=== PATIENT | female | born 1970 | race African-American/Black ===

== ENCOUNTER 2023-07-14 07:38 | Inpatient (IN) | payer MEDICARE, MEDICAID ==
[~2023-07-14] VITALS: Ht 175.3 cm; Wt 96.6 kg
[~2023-07-14 07:38] MED LIST: NIFE10CA; [UNRECOGNIZED DRUG - OTHER]
[2023-07-14 09:05] LABS: BASOPHILS % 0.6 % (0.0-2.0); EOSINOPHILS % 1.9 % (0.0-5.0); HEMATOCRIT. 40.8 % (36.0-48.0); HEMOGLOBIN. 13.5 g/dL (12.0-16.0); LYMPHOCYTES % 20.3 % (20.0-50.0); MEAN CORPUSCULAR HEMOGLOBIN 31.1 pg (28.0-32.0); MEAN CORPUSCULAR HGB CONC 33.1 g/dL (31.0-37.0); MEAN CORPUSCULAR VOLUME 93.9 fL (81.0-99.0); MEAN PLATELET VOLUME 7.5 fl (7.4-10.4); MONOCYTES % 7.1 % (2.0-8.0); NEUTROPHILS % 70.1 % (40.0-76.0); PLATELET 274 x1000/uL (130-400); RED BLOOD CELL COUNT 4.35 mill/uL (4.2-5.4); WHITE BLOOD COUNT 6.8 x1000/uL (4.5-11.0)
[2023-07-14 09:12] LABS: CHLORIDE 110 mEq/L (98-107); INDEX HEMOLYSI 2 (1-3); INDEX ICTERIC 1 (1-4); INDEX LIPEMIC 1 (1-3); POTASSIUM 3.6 mEq/L (3.5-5.1); SODIUM 137 mEq/L (136-145)
[2023-07-14] MEDS ORDERED: MORPHINE SULFATE 4 MG/ML CPJ (NOT FOR IM USE) IV ONE (09:15)
[2023-07-14 09:21] LABS: ALANINE AMINOTRANSFERASE 28 IU/L (13-61); ALBUMIN 3.6 g/dL (3.4-5.0); ASPARTATE AMINOTRANSFERASE 23 IU/L (15-37); BILIRUBIN TOTAL 0.3 mg/dL (0.1-1.0); CALCIUM 8.7 mg/dL (8.5-10.1); CARBON DIOXIDE 24 mEq/L (21-32); CREATININE 0.7 mg/dL (0.6-1.3); GLUCOSE 106 mg/dL (70-105); PROTEIN TOTAL 7.4 g/dL (6.0-8.3); TROPONIN I HIGH SENSITIVITY 5 ng/L (<54); UREA NITROGEN BLOOD 11 mg/dL (7-21)
[2023-07-14 09:23] LABS: NT PRO B-TYPE NATRIURETIC PEP < 5 pg/mL (5-125)
[2023-07-14] MEDS ORDERED: ONDANSETRON HCL 4MG/2ML INJ IV PRN (12:00)
[2023-07-14] MEDS ORDERED: GUAIFENESIN 200MG/10ML SUGAR FREE UDC PO PRN (12:00)
[2023-07-14] MEDS ORDERED: DOCUSATE SODIUM 100MG CAPSULE PO PRN (12:00)
[2023-07-14] MEDS ORDERED: IPRATROPIUM/ALBUTEROL 0.5-3(2.5)MG/3ML NEB HHN PRN (12:00)
[2023-07-14] MEDS ORDERED: ACETAMINOPHEN 325MG TABLET PO PRN (12:00)
[2023-07-14] MEDS ORDERED: CLONIDINE 0.1MG TABLET PO PRN (12:00)
[2023-07-14] MEDS ORDERED: NALOXONE HCL 0.4MG/ML VIAL IV PRN (12:15)
[2023-07-14] MEDS: PANTOPRAZOLE SODIUM 40 MG/VIAL IV SCH (12:55)
[2023-07-14] MEDS: CLOPIDOGREL 75MG TABLET PO SCH (12:56)
[2023-07-14] MEDS: ENOXAPARIN 40MG/0.4ML SYR SUBCUT SCH ×2 (13:00→21:43)
[2023-07-14 16:10] LABS: TROPONIN I HIGH SENSITIVITY 7 ng/L (<54)
[2023-07-14 16:15] VITALS: BP 142/59; PULSE 73; RESP 15; TEMP 97.3
[2023-07-14 16:20] VITALS: BP 142/94; PULSE 83; RESP 15; TEMP 97.3
[2023-07-14 18:00] VITALS: BP 140/85; PULSE 73; RESP 15; TEMP 97.3
[2023-07-14] MEDS: TRAMADOL 50MG TABLET PO PRN (18:06)
[2023-07-14 20:00] VITALS: BP 140/89; PULSE 74; RESP 18; TEMP 97.1
[2023-07-14] MEDS: MORPHINE SULFATE 2 MG/ML CPJ (NOT FOR IM USE) IV PRN (23:18)
[2023-07-15] VITALS: BP 128/99; PULSE 62; RESP 17; TEMP 97.4
[2023-07-15] LABS: TROPONIN I HIGH SENSITIVITY 6 ng/L (<54)
[2023-07-15] MEDS: NITROGLYCERIN 0.4MG TABLET SL SL PRN ×2 (01:20→10:07)
[2023-07-15 04:00] VITALS: BP 140/87; PULSE 61; RESP 17; TEMP 98.2
[2023-07-15 07:20] LABS: BASOPHILS % 0.4 % (0.0-2.0); EOSINOPHILS % 2.9 % (0.0-5.0); HEMOGLOBIN. 14.3 g/dL (12.0-16.0); LYMPHOCYTES % 32.8 % (20.0-50.0); MEAN CORPUSCULAR VOLUME 91.6 fL (81.0-99.0); MEAN PLATELET VOLUME 7.6 fl (7.4-10.4); MONOCYTES % 10.5 % (2.0-8.0); NEUTROPHILS % 53.4 % (40.0-76.0); PLATELET 258 x1000/uL (130-400); RED BLOOD CELL COUNT 4.48 mill/uL (4.2-5.4); RED CELL DISTRIBUTION WIDTH 14.5 % (11.6-14.6); WHITE BLOOD COUNT 6.4 x1000/uL (4.5-11.0)
[2023-07-15] MEDS: PANTOPRAZOLE SODIUM 40 MG/VIAL IV SCH (07:58)
[2023-07-15] MEDS: TRAMADOL 50MG TABLET PO PRN (07:59)
[2023-07-15 08:43] VITALS: BP 115/66; PULSE 65; RESP 14; TEMP 98.2
[2023-07-15 08:54] LABS: CHLORIDE 109 mEq/L (98-107); INDEX HEMOLYSI 2 (1-3); INDEX ICTERIC 1 (1-4); INDEX LIPEMIC 1 (1-3); POTASSIUM 3.6 mEq/L (3.5-5.1); SODIUM 136 mEq/L (136-145)
[2023-07-15 09:03] LABS: ALANINE AMINOTRANSFERASE 30 IU/L (13-61); ALBUMIN 3.8 g/dL (3.4-5.0); ASPARTATE AMINOTRANSFERASE 25 IU/L (15-37); BILIRUBIN TOTAL 0.6 mg/dL (0.1-1.0); CALCIUM 9.2 mg/dL (8.5-10.1); CARBON DIOXIDE 25 mEq/L (21-32); CREATININE 0.7 mg/dL (0.6-1.3); GLUCOSE 97 mg/dL (70-105); PROTEIN TOTAL 7.6 g/dL (6.0-8.3); UREA NITROGEN BLOOD 11 mg/dL (7-21)
[2023-07-15] MEDS: ASPIRIN 81MG EC TABLET PO SCH (09:11)
[2023-07-15] MEDS: CLOPIDOGREL 75MG TABLET PO SCH (09:11)
[2023-07-15] MEDS ORDERED: ENOXAPARIN 100MG/ML SYR SUBCUT NR (10:00)
[2023-07-15] MEDS: MORPHINE SULFATE 2 MG/ML CPJ (NOT FOR IM USE) IV PRN (10:06)
[2023-07-15] MEDS ORDERED: CARV6.2548 PO (10:12)
[2023-07-15 10:55] LABS: TROPONIN I HIGH SENSITIVITY 4 ng/L (<54)
[2023-07-15 11:15] LABS: PROTHROMBIN TIME 10.6 sec (9.6-11.0)
[2023-07-15 12:00] VITALS: BP 130/92; PULSE 73; RESP 18; TEMP 97.8
[2023-07-15] MEDS: AMLODIPINE 10MG TABLET PO SCH (12:09)
[2023-07-15] MEDS: CARVEDILOL 6.25 MG TABLET PO SCH ×2 (12:09→21:19)
[2023-07-15] MEDS: ISOSORBIDE MONONITRATE 30MG TABLET SR 24HR PO SCH (12:10)
[2023-07-15 12:58] LABS: TROPONIN I HIGH SENSITIVITY 5 ng/L (<54)
[2023-07-15] MEDS ORDERED: IOHEXOL-350 100 ML BOTTLE ONE (12:58)
[2023-07-15 16:45] VITALS: BP 117/77; PULSE 68; RESP 14; TEMP 97.5
[2023-07-15 20:25] VITALS: BP 125/87; PULSE 62; RESP 18; TEMP 97.9
[2023-07-15] MEDS: ENOXAPARIN 100MG/ML SYR SUBCUT SCH (21:19)
[2023-07-16] VITALS: BP 117/77; PULSE 58; RESP 17; TEMP 97.8
[2023-07-16 04:00] VITALS: BP 117/79; PULSE 57; RESP 17; TEMP 97.8
[2023-07-16 08:02] VITALS: BP 120/93; PULSE 67; RESP 13; TEMP 98
[2023-07-16] MEDS: ISOSORBIDE MONONITRATE 30MG TABLET SR 24HR PO SCH (08:33)
[2023-07-16] MEDS: ENOXAPARIN 100MG/ML SYR SUBCUT SCH ×2 (08:33→20:40)
[2023-07-16] MEDS: CARVEDILOL 6.25 MG TABLET PO SCH ×2 (08:33→20:39)
[2023-07-16] MEDS: AMLODIPINE 10MG TABLET PO SCH (08:33)
[2023-07-16] MEDS: ASPIRIN 81MG EC TABLET PO SCH (08:33)
[2023-07-16] MEDS: CLOPIDOGREL 75MG TABLET PO SCH (08:33)
[2023-07-16] MEDS: PANTOPRAZOLE SODIUM 40 MG/VIAL IV SCH (08:34)
[2023-07-16] MEDS ORDERED: ISOSORBIDE MONONITRATE 30MG TABLET SR 24HR PO SCH (09:00)
[2023-07-16] MEDS ORDERED: ISOSORBIDE MONONITRATE 30MG TABLET SR 24HR PO NR (10:00)
[2023-07-16 12:00] VITALS: BP 133/93; PULSE 62; RESP 21; TEMP 98.3
[2023-07-16 16:01] VITALS: BP 116/80; PULSE 69; RESP 15; TEMP 98.8
[2023-07-16 19:47] VITALS: BP 128/93; PULSE 88; RESP 20; TEMP 97.9
[2023-07-17] VITALS (7 sets, daily range): BP systolic 98–122; BP diastolic 62–76; PULSE 60–78; RESP 12–27; TEMP 97–98.6
[2023-07-17] MEDS: ASPIRIN 81MG EC TABLET PO SCH (08:34)
[2023-07-17] MEDS: CARVEDILOL 6.25 MG TABLET PO SCH ×2 (08:35→21:27)
[2023-07-17] MEDS: ENOXAPARIN 100MG/ML SYR SUBCUT SCH ×2 (08:35→22:41)
[2023-07-17] MEDS: CLOPIDOGREL 75MG TABLET PO SCH (08:35)
[2023-07-17] MEDS: AMLODIPINE 10MG TABLET PO SCH (08:35)
[2023-07-17] MEDS: PANTOPRAZOLE SODIUM 40 MG/VIAL IV SCH (08:36)
[2023-07-17] MEDS: ISOSORBIDE MONONITRATE 60MG TABLET SR 24HR PO SCH (08:45)
[2023-07-17] MEDS: NITROGLYCERIN 0.4MG TABLET SL SL PRN ×2 (14:58→18:57)
[2023-07-17] MEDS: TRAMADOL 50MG TABLET PO PRN (21:28)
[2023-07-18] VITALS (11 sets, daily range): BP systolic 110–144; BP diastolic 54–91; PULSE 59–77; RESP 12–22; TEMP 96.6–98.3
[2023-07-18] MEDS: SODIUM CHLORIDE 0.45% 500 ML IV SCH ×3 (00:48→15:45)
[2023-07-18] MEDS: ENOXAPARIN 100MG/ML SYR SUBCUT SCH (08:04)
[2023-07-18] MEDS: CARVEDILOL 6.25 MG TABLET PO SCH ×2 (08:22→21:14)
[2023-07-18] MEDS: AMLODIPINE 10MG TABLET PO SCH (08:23)
[2023-07-18] MEDS: PANTOPRAZOLE SODIUM 40 MG/VIAL IV SCH (08:23)
[2023-07-18] MEDS: ISOSORBIDE MONONITRATE 60MG TABLET SR 24HR PO SCH (08:23)
[2023-07-18] MEDS: CLOPIDOGREL 75MG TABLET PO SCH (08:23)
[2023-07-18] MEDS: ASPIRIN 81MG EC TABLET PO SCH (08:23)
[2023-07-18] MEDS ORDERED: LIDOCAINE HCL 1% 10 MG/ML 10ML VIAL ONE (09:51)
[2023-07-18] MEDS ORDERED: VERAPAMIL HCL 2.5 MG/1 ML 2ML VIAL IV ONE (09:52)
[2023-07-18] MEDS ORDERED: IODIXANOL 320MG/ML 100 ML BOTTLE IV ONE (09:56)
[2023-07-18] MEDS ORDERED: MIDAZOLAM HCL 2 MG/2 ML VIAL ONE (10:19)
[2023-07-18] MEDS ORDERED: FENTANYL CITRATE/PF 50MCG/ML 2ML VIAL ONE (10:20)
[2023-07-18] MEDS ORDERED: HEPARIN 1000 UNITS/ML 10ML ONE (10:34)
[2023-07-18] MEDS ORDERED: DIPHENHYDRAMINE 50MG/ML VIAL ONE (10:45)
[2023-07-18] MEDS ORDERED: DOPAMINE 400MG/250ML PREMIX 250 ML IV ONE (10:55)
[2023-07-18] MEDS ORDERED: CLOPIDOGREL 75MG TABLET ONE (11:12)
[2023-07-18] MEDS ORDERED: ACETAMINOPHEN 325MG TABLET PO PRN (11:45)
[2023-07-18] MEDS ORDERED: ATROPINE SULFATE 1MG/10ML SYR IV PRN (11:45)
[2023-07-18] MEDS: APIXABAN 5 MG TABLET PO SCH (18:02)
[2023-07-18] MEDS: TRAMADOL 50MG TABLET PO PRN (21:14)
[2023-07-19 00:07] VITALS: BP 112/68; PULSE 71; RESP 18; TEMP 98.4
[2023-07-19] MEDS: MORPHINE SULFATE 2 MG/ML CPJ (NOT FOR IM USE) IV PRN (00:52)
[2023-07-19 04:03] VITALS: BP 139/90; PULSE 64; RESP 14; TEMP 98.1
[2023-07-19 06:21] LABS: BASOPHILS % 0.6 % (0.0-2.0); EOSINOPHILS % 4.2 % (0.0-5.0); HEMATOCRIT. 42.5 % (36.0-48.0); HEMOGLOBIN. 14.6 g/dL (12.0-16.0); LYMPHOCYTES % 30.5 % (20.0-50.0); MEAN CORPUSCULAR HEMOGLOBIN 31.7 pg (28.0-32.0); MEAN CORPUSCULAR HGB CONC 34.5 g/dL (31.0-37.0); MEAN CORPUSCULAR VOLUME 92.1 fL (81.0-99.0); MEAN PLATELET VOLUME 7.7 fl (7.4-10.4); NEUTROPHILS % 52.7 % (40.0-76.0); PLATELET 263 x1000/uL (130-400); RED BLOOD CELL COUNT 4.61 mill/uL (4.2-5.4); WHITE BLOOD COUNT 5.6 x1000/uL (4.5-11.0)
[2023-07-19 07:21] LABS: CALCIUM 9.2 mg/dL (8.5-10.1); CHLORIDE 111 mEq/L (98-107); INDEX HEMOLYSI 1 (1-3); INDEX ICTERIC 1 (1-4); INDEX LIPEMIC 1 (1-3); POTASSIUM 3.8 mEq/L (3.5-5.1); SODIUM 136 mEq/L (136-145)
[2023-07-19 07:25] LABS: CARBON DIOXIDE 29 mEq/L (21-32); CREATININE 0.7 mg/dL (0.6-1.3); GLUCOSE 98 mg/dL (70-105); UREA NITROGEN BLOOD 12 mg/dL (7-21)
[2023-07-19 08:02] VITALS: BP 133/93; PULSE 81; RESP 22; TEMP 97.8
[2023-07-19] MEDS ORDERED: CLOPIDOGREL 75MG TABLET PO SCH (09:00)
[2023-07-19] MEDS: CARVEDILOL 6.25 MG TABLET PO SCH (09:10)
[2023-07-19] MEDS: APIXABAN 5 MG TABLET PO SCH (09:10)
[2023-07-19] MEDS: AMLODIPINE 10MG TABLET PO SCH (09:10)
[2023-07-19] MEDS: PANTOPRAZOLE SODIUM 40 MG/VIAL IV SCH (09:11)
[2023-07-19] MEDS: ASPIRIN 81MG EC TABLET PO SCH (09:11)
[2023-07-19 12:00] VITALS: BP 129/84; PULSE 72; RESP 14; TEMP 97.7
[2023-07-19 15:05] VITALS: BP 134/93; PULSE 99; TEMP 98.1; O2SAT 99
[2023-07-25] MEDS ORDERED: APIXABAN 5 MG TABLET PO SCH (17:00)
== END 2023-07-19 16:39 | disposition home or self-care (01) | DRG 246 ==
LOC: ER 08:19 → 3WST 11:13 → EDBEDREQTM 11:14 → EDBEDREQ 11:14
PROVIDERS: ADMIT Hospitalist; ATTEND Hospitalist
PROC: 027034Z Dilation of Coronary Artery, One Artery with Drug-eluting Intraluminal Device, Percutaneous Approach (ICD-10-PCS; principal; 2023-07-18)
PROC: 4A023N7 Measurement of Cardiac Sampling and Pressure, Left Heart, Percutaneous Approach (ICD-10-PCS; 2023-07-18)
PROC: B211YZZ Fluoroscopy of Multiple Coronary Arteries using Other Contrast (ICD-10-PCS; 2023-07-18)
DX: T82.855A Stenosis of coronary artery stent, initial encounter (principal); I21.9 Acute myocardial infarction, unspecified; I82.411 Acute embolism and thrombosis of right femoral vein; I25.110 Atherosclerotic heart disease of native coronary artery with unstable angina pectoris; I10 Essential (primary) hypertension; J44.9 Chronic obstructive pulmonary disease, unspecified; F41.9 Anxiety disorder, unspecified; K21.9 Gastro-esophageal reflux disease without esophagitis; E78.5 Hyperlipidemia, unspecified; F17.200 Nicotine dependence, unspecified, uncomplicated; I25.2 Old myocardial infarction; Z95.5 Presence of coronary angioplasty implant and graft; Z79.899 Other long term (current) drug therapy; Y84.8 Other medical procedures as the cause of abnormal reaction of the patient, or of later complication, without mention of misadventure at the time of the procedure; Y92.89 Other specified places as the place of occurrence of the external cause
CPT/HCPCS: 36415; 71045; 71275; 80048; 80053; 80061; 83880; 84484; 85025; 93005; 93306; 93880; 93970; 99285; C9113; J1200; J1265; J1644; J1650; J2250; J2270; J3010; J3490; Q9967

== ENCOUNTER 2023-09-15 08:28 | Inpatient (IN) | payer MEDICARE, MEDICAID ==
[~2023-09-15] VITALS: Ht 175.3 cm; Wt 93.6 kg
[2023-09-15] VITALS (21 sets, daily range): BP systolic 112–165; BP diastolic 65–146; PULSE 58–74; RESP 10–22; TEMP 97.5–98.7
[~2023-09-15 08:28] MED LIST changes: +CARV6.2548 PO
[2023-09-15 08:52] LABS: BASOPHILS % 0.8 % (0.0-2.0); HEMATOCRIT. 39.7 % (36.0-48.0); HEMOGLOBIN. 13.4 g/dL (12.0-16.0); MEAN CORPUSCULAR HEMOGLOBIN 31.2 pg (28.0-32.0); MEAN CORPUSCULAR HGB CONC 33.8 g/dL (31.0-37.0); MEAN CORPUSCULAR VOLUME 92.3 fL (81.0-99.0); MEAN PLATELET VOLUME 7.4 fl (7.4-10.4); NEUTROPHILS % 53.2 % (40.0-76.0); PLATELET 280 x1000/uL (130-400); RED CELL DISTRIBUTION WIDTH 14.6 % (11.6-14.6); WHITE BLOOD COUNT 8.6 x1000/uL (4.5-11.0)
[2023-09-15 09:00] LABS: CHLORIDE 107 mEq/L (98-107); INDEX HEMOLYSI 1 (1-3); INDEX ICTERIC 1 (1-4); INDEX LIPEMIC 1 (1-3); SODIUM 141 mEq/L (136-145)
[2023-09-15 09:10] LABS: ALANINE AMINOTRANSFERASE 47 IU/L (13-61); ALBUMIN 3.7 g/dL (3.4-5.0); ASPARTATE AMINOTRANSFERASE 38 IU/L (15-37); BILIRUBIN TOTAL 0.6 mg/dL (0.1-1.0); CALCIUM 8.4 mg/dL (8.5-10.1); CARBON DIOXIDE 27 mEq/L (21-32); CREATININE 0.7 mg/dL (0.6-1.3); GLUCOSE 176 mg/dL (70-105); NT PRO B-TYPE NATRIURETIC PEP 19 pg/mL (5-125); PROTEIN TOTAL 7.5 g/dL (6.0-8.3); TROPONIN I HIGH SENSITIVITY 4 ng/L (<54); UREA NITROGEN BLOOD 6 mg/dL (7-21)
[2023-09-15] MEDS ORDERED: GUAIFENESIN 200MG/10ML SUGAR FREE UDC PO PRN (11:30)
[2023-09-15] MEDS ORDERED: CLONIDINE 0.1MG TABLET PO PRN (11:30)
[2023-09-15] MEDS ORDERED: IPRATROPIUM/ALBUTEROL 0.5-3(2.5)MG/3ML NEB HHN PRN ×2 (11:30→18:45)
[2023-09-15] MEDS ORDERED: MAGNESIUM/ALUMINUM HYDROXIDE/SIMETHICONE 30ML UDC PO PRN (11:30)
[2023-09-15] MEDS ORDERED: ONDANSETRON HCL 4MG/2ML INJ IV PRN (11:30)
[2023-09-15] MEDS ORDERED: ACETAMINOPHEN 325MG TABLET PO PRN ×2 (11:30)
[2023-09-15] MEDS ORDERED: DOCUSATE SODIUM 100MG CAPSULE PO PRN (11:30)
[2023-09-15] MEDS ORDERED: ROSU40TA PO (13:25)
[2023-09-15] MEDS ORDERED: CLOP75TA33 PO (13:25)
[2023-09-15] MEDS ORDERED: PANT40TA51 PO (13:25)
[2023-09-15] MEDS ORDERED: AMLO10TA80 PO (13:25)
[2023-09-15] MEDS ORDERED: ISMO20 PO (13:25)
[2023-09-15] MEDS ORDERED: CARV6.2548 PO (13:25)
[2023-09-15] MEDS ORDERED: EZET10TA81 PO (13:25)
[2023-09-15] MEDS ORDERED: ASPI-1497 PO (13:25)
[2023-09-15] MEDS ORDERED: ESCI-7 PO (13:25)
[2023-09-15] MEDS ORDERED: PANTOPRAZOLE SODIUM 40 MG/VIAL IV SCH (13:45)
[2023-09-15] MEDS: ASPIRIN 81MG TABLET PO SCH (13:57)
[2023-09-15 14:24] LABS: INDEX HEMOLYSI 2 (1-3); INDEX ICTERIC 1 (1-4); INDEX LIPEMIC 1 (1-3)
[2023-09-15 14:37] LABS: IRON 56 ug/dL (50-175); TOTAL IRON BINDING CAPACITY 355 ug/dL (250-450)
[2023-09-15 14:53] LABS: VITAMIN B12 SERUM 447 pg/mL (211-911)
[2023-09-15] MEDS ORDERED: MEDICATION NOT ON FORMULARY EA (Escitalopram Oxalate 10 MG) PO SCH (15:45)
[2023-09-15] MEDS: CLOPIDOGREL 75MG TABLET PO SCH (15:45)
[2023-09-15] MEDS ORDERED: POTASSIUM CHLORIDE 20MEQ/PACKET PO NR ×2 (15:45→20:30)
[2023-09-15] MEDS ORDERED: ENOXAPARIN 40MG/0.4ML SYR SUBCUT SCH (16:00)
[2023-09-15 17:11] LABS: TROPONIN I HIGH SENSITIVITY 70 ng/L (<54)
[2023-09-15 17:17] LABS: PHOSPHORUS 3.1 mg/dL (2.5-4.9)
[2023-09-15 17:27] LABS: VITAMIN B12 SERUM 515 pg/mL (211-911)
[2023-09-15] MEDS ORDERED: NITROGLYCERIN 0.4MG TABLET SL SL PRN (17:30)
[2023-09-15] MEDS ORDERED: NALOXONE HCL 0.4MG/ML VIAL IV PRN (17:45)
[2023-09-15] MEDS ORDERED: HEPARIN SODIUM 1,000 UNIT/1ML VIAL IV ONE (17:45)
[2023-09-15] MEDS: MORPHINE SULFATE 2 MG/ML CPJ (NOT FOR IM USE) IV PRN ×2 (17:51→22:11)
[2023-09-15 18:15] LABS: BG CARBOXYHEMOGLOBIN 1.4 % (0.5-1.5); BG DEOXYHEMOGLOBIN 0.7 % (0.0-5.0); BG FRACTION INSPIRED OXYGEN 100; BG HCO3 ACT 29.1 mmol/L (22.0-26.0); BG METHEMOGLOBIN 0.1 % (0.0-1.5); BG OXYGEN SATURATION 99.3 % (92.0-98.5); BG OXYHEMOGLOBIN 97.8 % (94.0-97.0); BG PCO2 45.6 mmHg (35.0-45.0); BG PH 7.423 (7.350-7.450); BG PO2 419.5 mmHg (75.0-100.0); BG SAMPLE SITE LEFT RADIAL; BG TOTAL HEMOGLOBIN 13.8 g/dL (12.0-18.0); BG VENT MODE MASK - NRB
[2023-09-15 18:18] LABS: HEMATOCRIT 39.9 % (36.0-48.0); HEMOGLOBIN 13.5 g/dL (12.0-16.0); MEAN CORPUSCULAR HEMOGLOBIN 30.8 pg (28.0-32.0); MEAN CORPUSCULAR HGB CONC 33.9 g/dL (31.0-37.0); PLATELET 287 x1000/uL (130-400); RED BLOOD CELL COUNT 4.38 mill/uL (4.2-5.4); RED CELL DISTRIBUTION WIDTH 14.6 % (11.6-14.6); WHITE BLOOD COUNT 8.9 x1000/uL (4.5-11.0)
[2023-09-15 18:28] LABS: CHLORIDE 106 mEq/L (98-107); INDEX HEMOLYSI 1 (1-3); INDEX ICTERIC 1 (1-4); INDEX LIPEMIC 1 (1-3); SODIUM 141 mEq/L (136-145)
[2023-09-15] MEDS: CITALOPRAM HYDROBROMIDE 10MG TABLET PO SCH (18:36)
[2023-09-15] MEDS: ISOSORBIDE MONONITRATE 60MG TABLET SR 24HR PO SCH (18:37)
[2023-09-15] MEDS: CARVEDILOL 6.25 MG TABLET PO SCH (18:37)
[2023-09-15] MEDS: EZETIMIBE 10MG TABLET PO SCH (18:38)
[2023-09-15 18:39] LABS: ALANINE AMINOTRANSFERASE 42 IU/L (13-61); ALBUMIN 3.9 g/dL (3.4-5.0); ASPARTATE AMINOTRANSFERASE 32 IU/L (15-37); BILIRUBIN TOTAL 0.3 mg/dL (0.1-1.0); CALCIUM 9.3 mg/dL (8.5-10.1); CARBON DIOXIDE 29 mEq/L (21-32); CREATINE KINASE 158 IU/L (26-192); CREATINE KINASE MB FRACTION 1.2 ng/mL (0.5-3.6); CREATININE 0.7 mg/dL (0.6-1.3); GLUCOSE 113 mg/dL (70-105); PROTEIN TOTAL 8.1 g/dL (6.0-8.3); UREA NITROGEN BLOOD 8 mg/dL (7-21)
[2023-09-15 18:41] LABS: PROTHROMBIN TIME 10.3 sec (9.6-11.0)
[2023-09-15] MEDS ORDERED: NITROGLYCERIN 0.4MG/HR PATCH TOP NR (19:00)
[2023-09-15 19:16] LABS: POTASSIUM 2.7 mEq/L (3.5-5.1); TROPONIN I HIGH SENSITIVITY 78 ng/L (<54)
[2023-09-15] MEDS ORDERED: HEPARIN 5000 UNITS/ML VIAL IV NR ×2 (19:30→20:45)
[2023-09-15] MEDS ORDERED: HEPARIN 25,000 UNITS PREMIX 250 ML IV SCH (20:00)
[2023-09-15] MEDS ORDERED: POTASSIUM CHLORIDE INJ 40 MEQ in DEXT 5% WATER 250 ML IV ONE (20:30)
[2023-09-15] MEDS ORDERED: KCL 20MEQ/100ML X 2 FOR TOTAL KCL 40MEQ/200ML IV SCH (21:00)
[2023-09-15] MEDS: GUAIFENESIN 600MG ER TABLET PO SCH (22:07)
[2023-09-15] MEDS: ATORVASTATIN CALCIUM 40MG TABLET PO SCH (22:07)
[2023-09-16] VITALS (64 sets, daily range): BP systolic 102–188; BP diastolic 60–120; PULSE 53–80; RESP 11–26; TEMP 98.1–98.4; O2SAT 99
[2023-09-16 00:03] LABS: BASOPHILS % 0.3 % (0.0-2.0); EOSINOPHILS % 1.2 % (0.0-5.0); HEMATOCRIT. 36.4 % (36.0-48.0); HEMOGLOBIN. 12.3 g/dL (12.0-16.0); LYMPHOCYTES % 29.5 % (20.0-50.0); MEAN CORPUSCULAR HEMOGLOBIN 30.7 pg (28.0-32.0); MEAN CORPUSCULAR HGB CONC 33.6 g/dL (31.0-37.0); MEAN CORPUSCULAR VOLUME 91.1 fL (81.0-99.0); MEAN PLATELET VOLUME 7.5 fl (7.4-10.4); MONOCYTES % 8.8 % (2.0-8.0); NEUTROPHILS % 60.2 % (40.0-76.0); PLATELET 282 x1000/uL (130-400); RED CELL DISTRIBUTION WIDTH 14.6 % (11.6-14.6); WHITE BLOOD COUNT 9.3 x1000/uL (4.5-11.0)
[2023-09-16 00:47] LABS: CREATINE KINASE MB FRACTION 1.3 ng/mL (0.5-3.6)
[2023-09-16] MEDS ORDERED: HEPARIN 5000 UNITS/ML VIAL IV PRN ×2 (02:00)
[2023-09-16 05:52] LABS: BASOPHILS % 0.3 % (0.0-2.0); EOSINOPHILS % 1.7 % (0.0-5.0); HEMOGLOBIN. 12.4 g/dL (12.0-16.0); LYMPHOCYTES % 37.7 % (20.0-50.0); MEAN CORPUSCULAR HEMOGLOBIN 31.1 pg (28.0-32.0); MEAN CORPUSCULAR HGB CONC 33.6 g/dL (31.0-37.0); MEAN CORPUSCULAR VOLUME 92.5 fL (81.0-99.0); MEAN PLATELET VOLUME 7.2 fl (7.4-10.4); MONOCYTES % 10.6 % (2.0-8.0); NEUTROPHILS % 49.7 % (40.0-76.0); PLATELET 268 x1000/uL (130-400); RED CELL DISTRIBUTION WIDTH 14.8 % (11.6-14.6); WHITE BLOOD COUNT 9.2 x1000/uL (4.5-11.0)
[2023-09-16 05:57] LABS: CHLORIDE 106 mEq/L (98-107); INDEX HEMOLYSI 1 (1-3); INDEX ICTERIC 1 (1-4); INDEX LIPEMIC 1 (1-3); POTASSIUM 3.1 mEq/L (3.5-5.1); SODIUM 141 mEq/L (136-145)
[2023-09-16 06:13] LABS: ALANINE AMINOTRANSFERASE 35 IU/L (13-61); ALBUMIN 3.5 g/dL (3.4-5.0); ASPARTATE AMINOTRANSFERASE 28 IU/L (15-37); BILIRUBIN TOTAL 0.7 mg/dL (0.1-1.0); CARBON DIOXIDE 29 mEq/L (21-32); CHOLESTEROL 154 mg/dL (<200); CREATININE 0.6 mg/dL (0.6-1.3); GLUCOSE 99 mg/dL (70-105); HDL CHOLESTEROL 34 mg/dL (40-59); LDL CHOLESTEROL 95 mg/dL (5-100); PROTEIN TOTAL 7.4 g/dL (6.0-8.3); T4 FREE 0.97 ng/dL (0.76-1.46); THYROID STIMULATING HORMONE 0.53 uIU/mL (0.36-3.74); TRIGLYCERIDE 200 mg/dL (0-150); UREA NITROGEN BLOOD 9 mg/dL (7-21)
[2023-09-16 06:16] LABS: CREATINE KINASE MB FRACTION 1.5 ng/mL (0.5-3.6)
[2023-09-16] MEDS: CITALOPRAM HYDROBROMIDE 10MG TABLET PO SCH (09:00)
[2023-09-16] MEDS: IPRATROPIUM/ALBUTEROL 0.5-3(2.5)MG/3ML NEB HHN SCH ×2 (09:30→20:24)
[2023-09-16] MEDS: GUAIFENESIN 600MG ER TABLET PO SCH ×2 (09:51→21:15)
[2023-09-16] MEDS: ATORVASTATIN CALCIUM 40MG TABLET PO SCH (09:51)
[2023-09-16] MEDS: EZETIMIBE 10MG TABLET PO SCH (09:51)
[2023-09-16] MEDS: PANTOPRAZOLE 40MG DR TABLET PO SCH (09:51)
[2023-09-16] MEDS: AMLODIPINE 10MG TABLET PO SCH (09:52)
[2023-09-16] MEDS: ISOSORBIDE MONONITRATE 60MG TABLET SR 24HR PO SCH (09:52)
[2023-09-16] MEDS: CARVEDILOL 6.25 MG TABLET PO SCH ×2 (09:52→18:05)
[2023-09-16] MEDS: ASPIRIN 81MG TABLET PO SCH (09:52)
[2023-09-16] MEDS: CLOPIDOGREL 75MG TABLET PO SCH (09:52)
[2023-09-16] MEDS ORDERED: HEPARIN 1000 UNITS/ML 10ML ONE ×2 (13:48→15:13)
[2023-09-16] MEDS ORDERED: VERAPAMIL HCL 2.5 MG/1 ML 2ML VIAL IV ONE (13:48)
[2023-09-16] MEDS ORDERED: LIDOCAINE HCL 1% 20ML VIAL (Pyxis) INJ ONE (13:48)
[2023-09-16] MEDS ORDERED: MIDAZOLAM HCL 2 MG/2 ML VIAL ONE (13:48)
[2023-09-16] MEDS ORDERED: FENTANYL CITRATE/PF 50MCG/ML 2ML VIAL ONE (13:48)
[2023-09-16] MEDS ORDERED: DIPHENHYDRAMINE 50MG/ML VIAL ONE (13:49)
[2023-09-16] MEDS ORDERED: IODIXANOL 320MG/ML 100 ML BOTTLE IV ONE ×2 (13:54→15:34)
[2023-09-16] MEDS ORDERED: SODIUM CHLORIDE 0.45% 1,000 ML IV ONE (16:15)
[2023-09-16] MEDS ORDERED: ATROPINE SULFATE 1MG/10ML SYR IV PRN (16:15)
[2023-09-16] MEDS ORDERED: ACETAMINOPHEN 325MG TABLET PO PRN (16:15)
[2023-09-16] MEDS ORDERED: CLOPIDOGREL 75MG TABLET ONE (16:29)
[2023-09-16] MEDS: MORPHINE SULFATE 2 MG/ML CPJ (NOT FOR IM USE) IV PRN ×2 (16:49→21:16)
[2023-09-17 00:09] VITALS: BP 134/75; PULSE 62; RESP 14; TEMP 98.2
[2023-09-17 02:20] VITALS: PULSE 54; RESP 12; O2SAT 96
[2023-09-17] MEDS: IPRATROPIUM/ALBUTEROL 0.5-3(2.5)MG/3ML NEB HHN SCH ×2 (02:20→08:00)
[2023-09-17 04:19] VITALS: BP 128/82; PULSE 63; RESP 18; TEMP 98.4
[2023-09-17 08:00] VITALS: BP 120/86; PULSE 67; PULSE 70; RESP 18; TEMP 98.4; O2SAT 95
[2023-09-17 08:15] LABS: BASOPHILS % 0.4 % (0.0-2.0); EOSINOPHILS % 1.9 % (0.0-5.0); HEMATOCRIT. 36.1 % (36.0-48.0); HEMOGLOBIN. 12.3 g/dL (12.0-16.0); LYMPHOCYTES % 23.7 % (20.0-50.0); MEAN CORPUSCULAR HEMOGLOBIN 31.1 pg (28.0-32.0); MEAN CORPUSCULAR VOLUME 91.5 fL (81.0-99.0); MEAN PLATELET VOLUME 7.3 fl (7.4-10.4); MONOCYTES % 9.9 % (2.0-8.0); NEUTROPHILS % 64.1 % (40.0-76.0); PLATELET 281 x1000/uL (130-400); RED BLOOD CELL COUNT 3.95 mill/uL (4.2-5.4); RED CELL DISTRIBUTION WIDTH 14.8 % (11.6-14.6); WHITE BLOOD COUNT 6.9 x1000/uL (4.5-11.0)
[2023-09-17] MEDS ORDERED: FAMO-135 MT (08:19)
[2023-09-17] MEDS: ATORVASTATIN CALCIUM 40MG TABLET PO SCH (08:40)
[2023-09-17] MEDS: ASPIRIN 81MG TABLET PO SCH (08:40)
[2023-09-17] MEDS: CLOPIDOGREL 75MG TABLET PO SCH (08:41)
[2023-09-17] MEDS: EZETIMIBE 10MG TABLET PO SCH (08:41)
[2023-09-17] MEDS: CITALOPRAM HYDROBROMIDE 10MG TABLET PO SCH (08:41)
[2023-09-17] MEDS: PANTOPRAZOLE 40MG DR TABLET PO SCH (08:41)
[2023-09-17] MEDS: AMLODIPINE 10MG TABLET PO SCH (08:42)
[2023-09-17] MEDS: CARVEDILOL 6.25 MG TABLET PO SCH (08:45)
[2023-09-17] MEDS: GUAIFENESIN 600MG ER TABLET PO SCH (08:47)
[2023-09-17 09:07] VITALS: RESP 20
[2023-09-17] MEDS: MORPHINE SULFATE 2 MG/ML CPJ (NOT FOR IM USE) IV PRN (09:07)
[2023-09-17 09:23] LABS: CHLORIDE 106 mEq/L (98-107); INDEX HEMOLYSI 1 (1-3); INDEX ICTERIC 1 (1-4); INDEX LIPEMIC 1 (1-3); SODIUM 141 mEq/L (136-145)
[2023-09-17 09:31] LABS: CARBON DIOXIDE 27 mEq/L (21-32); CREATININE 0.6 mg/dL (0.6-1.3); GLUCOSE 77 mg/dL (70-105); UREA NITROGEN BLOOD 7 mg/dL (7-21)
[2023-09-17 10:30] VITALS: BP 120/86; PULSE 75; TEMP 98.4; O2SAT 95
== END 2023-09-17 11:00 | disposition home or self-care (01) | DRG 321 ==
LOC: ER 08:28 → 7WST 10:01 → EDBEDREQ 10:03 → EDBEDREQTM 10:03 → CVICU 20:00 → 3WST 09-16 18:38
PROVIDERS: ADMIT Internal Medicine; ATTEND Internal Medicine
PROC: 5A12012 Performance of Cardiac Output, Single, Manual (ICD-10-PCS; 2023-09-15)
PROC: 4A023N7 Measurement of Cardiac Sampling and Pressure, Left Heart, Percutaneous Approach (ICD-10-PCS; principal; 2023-09-16)
PROC: 027036Z Dilation of Coronary Artery, One Artery with Three Drug-eluting Intraluminal Devices, Percutaneous Approach (ICD-10-PCS; 2023-09-16)
PROC: B2111ZZ Fluoroscopy of Multiple Coronary Arteries using Low Osmolar Contrast (ICD-10-PCS; 2023-09-16)
PROC: B2151ZZ Fluoroscopy of Left Heart using Low Osmolar Contrast (ICD-10-PCS; 2023-09-16)
PROC: B240ZZ3 Ultrasonography of Single Coronary Artery, Intravascular (ICD-10-PCS; 2023-09-16)
DX: T82.855A Stenosis of coronary artery stent, initial encounter (principal); I21.4 Non-ST elevation (NSTEMI) myocardial infarction; I25.110 Atherosclerotic heart disease of native coronary artery with unstable angina pectoris; I10 Essential (primary) hypertension; E87.6 Hypokalemia; I44.0 Atrioventricular block, first degree; I25.10 Atherosclerotic heart disease of native coronary artery without angina pectoris; J44.9 Chronic obstructive pulmonary disease, unspecified; R73.9 Hyperglycemia, unspecified; R61 Generalized hyperhidrosis; E78.5 Hyperlipidemia, unspecified; Z20.822 Contact with and (suspected) exposure to COVID-19; F41.9 Anxiety disorder, unspecified; K21.9 Gastro-esophageal reflux disease without esophagitis; Y83.1 Surgical operation with implant of artificial internal device as the cause of abnormal reaction of the patient, or of later complication, without mention of misadventure at the time of the procedure; Z79.02 Long term (current) use of antithrombotics/antiplatelets; Z79.899 Other long term (current) drug therapy; Z98.61 Coronary angioplasty status; Z79.82 Long term (current) use of aspirin
CPT/HCPCS: 36415; 36600; 71045; 80048; 80053; 80061; 82375; 82550; 82553; 82607; 82746; 82805; 82962; 83036; 83540; 83550; 83735; 83880; 84100; 84439; 84443; 84484; 85025; 85027; 85347; 87426; 92928; 92978; 93005; 93306; 93458; 93970; 94640; 99291; C1753; C1769; C1874; C1887; C1893; C9113; J1200; J1644; J2250; J2270; J3010; J3480; J3490; Q9967

== ENCOUNTER 2024-08-28 08:10 | Emergency (ER) | payer MEDICARE, MEDICAID ==
[~2024-08-28] VITALS: Ht 167.6 cm; Wt 91.0 kg
[~2024-08-28 08:10] MED LIST changes: +AMLO10TA80 PO; +ASPI-1497 PO; +CLOP75TA33 PO; +ESCI-7 PO; +EZET10TA81 PO; +FAMO-135 MT; +ISMO20 PO; -NIFE10CA; +ROSU40TA PO; -[UNRECOGNIZED DRUG - OTHER]
[2024-08-28 08:14] VITALS: BP 140/93; PULSE 74; RESP 20; TEMP 98.1; O2SAT 96
[2024-08-28] MEDS: ASPIRIN 81MG TABLET PO ONE (09:15)
[2024-08-28] MEDS: NITROGLYCERIN 0.4MG TABLET SL SL PRN (09:16)
[2024-08-28 09:27] LABS: BASOPHILS % 0.7 % (0.0-2.0); EOSINOPHILS % 6.6 % (0.0-5.0); HEMOGLOBIN. 13.6 g/dL (12.0-16.0); LYMPHOCYTES % 28.4 % (20.0-50.0); MEAN CORPUSCULAR HEMOGLOBIN 30.5 pg (28.0-32.0); MEAN CORPUSCULAR HGB CONC 32.3 g/dL (31.0-37.0); MEAN CORPUSCULAR VOLUME 94.5 fL (81.0-99.0); MEAN PLATELET VOLUME 7.4 fl (7.4-10.4); MONOCYTES % 10.5 % (2.0-8.0); NEUTROPHILS % 53.8 % (40.0-76.0); PLATELET 234 x1000/uL (130-400); RED BLOOD CELL COUNT 4.44 mill/uL (4.2-5.4); RED CELL DISTRIBUTION WIDTH 14.7 % (11.6-14.6); WHITE BLOOD COUNT 6.4 x1000/uL (4.5-11.0)
[2024-08-28 09:28] LABS: CHLORIDE 112 mEq/L (98-107); POTASSIUM 3.7 mEq/L (3.5-5.1); SODIUM 141 mEq/L (136-145)
[2024-08-28 09:29] LABS: CARBON DIOXIDE 26 mEq/L (21-32); HCG SCREEN NEGATIVE
[2024-08-28 09:30] LABS: CALCIUM 9.4 mg/dL (8.7-10.4)
[2024-08-28 09:34] LABS: CREATININE 0.7 mg/dL (0.6-1.0); GLUCOSE 98 mg/dL (70-105); UREA NITROGEN BLOOD 8 mg/dL (9-23)
[2024-08-28 09:36] LABS: INR 0.9; PROTHROMBIN TIME 10.3 sec (9.6-11.0)
[2024-08-28 09:45] LABS: TROPONIN I HIGH SENSITIVITY < 4 ng/L (3.0-34)
[2024-08-28] MEDS ORDERED: DOCUSATE SODIUM 100MG CAPSULE PO PRN (10:45)
[2024-08-28] MEDS ORDERED: ONDANSETRON HCL 4MG/2ML INJ IV PRN (10:45)
[2024-08-28] MEDS ORDERED: MAGNESIUM/ALUMINUM HYDROXIDE/SIMETHICONE 30ML UDC PO PRN (10:45)
[2024-08-28] MEDS ORDERED: GUAIFENESIN 200MG/10ML SUGAR FREE UDC PO PRN (10:45)
[2024-08-28] MEDS ORDERED: CLONIDINE 0.1MG TABLET PO PRN (10:45)
[2024-08-28] MEDS ORDERED: MORPHINE SULFATE 2 MG/ML INJ (NOT FOR IM USE) IV PRN ×2 (10:45)
[2024-08-28] MEDS ORDERED: LORAZEPAM 0.5MG TABLET PO PRN (10:45)
[2024-08-28] MEDS ORDERED: IPRATROPIUM/ALBUTEROL 0.5-3(2.5)MG/3ML NEB HHN PRN (10:45)
[2024-08-28] MEDS ORDERED: ACETAMINOPHEN 325MG TABLET PO PRN ×2 (10:45)
[2024-08-28] MEDS ORDERED: NITROGLYCERIN 0.4MG TABLET SL SL PRN (10:45)
[2024-08-28] MEDS ORDERED: ENOXAPARIN 40MG/0.4ML SYR SUBCUT SCH (11:00)
[2024-08-28 11:26] LABS: TROPONIN I HIGH SENSITIVITY < 4 ng/L (3.0-34)
[2024-08-28 12:44] LABS: TROPONIN I HIGH SENSITIVITY 4 ng/L (3.0-34)
[2024-08-28] MEDS ORDERED: ATORVASTATIN CALCIUM 40MG TABLET PO SCH (21:00)
[2024-08-28] MEDS ORDERED: FAMOTIDINE(NEO) 1MG/ML SUSP PO SCH (21:00)
[2024-08-28] MEDS ORDERED: METOPROLOL TARTRATE 25MG TABLET PO SCH (21:00)
[2024-08-29] MEDS ORDERED: ISOSORBIDE MONONITRATE 60MG TABLET SR 24HR PO SCH (09:00)
[2024-08-29] MEDS ORDERED: SERTRALINE HCL 50MG TABLET PO SCH (09:00)
[2024-08-29] MEDS ORDERED: ASPIRIN 81MG EC TABLET PO SCH (09:00)
[2024-08-29] MEDS ORDERED: CLOPIDOGREL 75MG TABLET PO SCH (09:00)
[2024-08-29] MEDS ORDERED: EZETIMIBE 10MG TABLET PO SCH (09:00)
[2024-08-29] MEDS ORDERED: AMLODIPINE 10MG TABLET PO SCH (09:00)
== END 2024-08-28 14:42 | disposition left against medical advice (07) ==
LOC: ER 08:10 → EDBEDREQTM 09:52 → EDBEDREQ 09:52 → ER 14:42
DX: I25.119 Atherosclerotic heart disease of native coronary artery with unspecified angina pectoris (principal); F41.9 Anxiety disorder, unspecified; E78.5 Hyperlipidemia, unspecified; I11.0 Hypertensive heart disease with heart failure; K21.9 Gastro-esophageal reflux disease without esophagitis; I25.2 Old myocardial infarction; J44.0 Chronic obstructive pulmonary disease with (acute) lower respiratory infection; Z79.899 Other long term (current) drug therapy
CPT/HCPCS: 36415; 71045; 80048; 83880; 84484; 84703; 85025; 93005; 99285

== ENCOUNTER 2024-10-23 05:50 | Emergency (ER) | payer MEDICARE, MEDICAID ==
[~2024-10-23] VITALS: Ht 172.7 cm; Wt 90.0 kg
[2024-10-23 05:52] VITALS: O2SAT 99
[2024-10-23] MEDS: ASPIRIN 325MG TABLET PO ONE (06:28)
[2024-10-23 07:17] LABS: CHLORIDE 109 mEq/L (98-107); POTASSIUM 3.6 mEq/L (3.5-5.1); SODIUM 142 mEq/L (136-145)
[2024-10-23 07:18] LABS: CARBON DIOXIDE 28 mEq/L (21-32)
[2024-10-23 07:19] LABS: CALCIUM 9.2 mg/dL (8.7-10.4)
[2024-10-23 07:23] LABS: CREATININE 0.8 mg/dL (0.6-1.0)
[2024-10-23 07:24] LABS: GLUCOSE 101 mg/dL (70-105); UREA NITROGEN BLOOD 13 mg/dL (9-23)
[2024-10-23 07:27] LABS: HCG SCREEN NEGATIVE
[2024-10-23 07:39] LABS: BASOPHILS % 0.7 % (0.0-2.0); EOSINOPHILS % 4.2 % (0.0-5.0); HEMATOCRIT. 43.8 % (36.0-48.0); HEMOGLOBIN. 14.8 g/dL (12.0-16.0); LYMPHOCYTES % 18.8 % (20.0-50.0); MEAN CORPUSCULAR HEMOGLOBIN 31.9 pg (28.0-32.0); MEAN CORPUSCULAR HGB CONC 33.7 g/dL (31.0-37.0); MEAN CORPUSCULAR VOLUME 94.5 fL (81.0-99.0); MEAN PLATELET VOLUME 7.7 fl (7.4-10.4); MONOCYTES % 8.7 % (2.0-8.0); NEUTROPHILS % 67.6 % (40.0-76.0); PLATELET 264 x1000/uL (130-400); RED BLOOD CELL COUNT 4.63 mill/uL (4.2-5.4); RED CELL DISTRIBUTION WIDTH 14.5 % (11.6-14.6); WHITE BLOOD COUNT 9.5 x1000/uL (4.5-11.0)
[2024-10-23 08:06] LABS: TROPONIN I HIGH SENSITIVITY < 4 ng/L (3.0-34)
[2024-10-23] MEDS ORDERED: ACETAMINOPHEN 325MG TABLET PO PRN ×3 (10:45→11:15)
[2024-10-23] MEDS ORDERED: IPRATROPIUM/ALBUTEROL 0.5-3(2.5)MG/3ML NEB HHN PRN ×2 (10:45→11:15)
[2024-10-23] MEDS ORDERED: ONDANSETRON HCL 4MG/2ML INJ IV PRN ×2 (10:45→11:15)
[2024-10-23] MEDS ORDERED: IPRATROPIUM/ALBUTEROL 0.5-3(2.5)MG/3ML NEB HHN SCH ×2 (11:00→12:00)
[2024-10-23] MEDS ORDERED: CYCL10TA21 PO (11:11)
[2024-10-23] MEDS ORDERED: GABA800T97 PO (11:11)
[2024-10-23] MEDS ORDERED: METO25TA6 PO (11:11)
[2024-10-23] MEDS: METOPROLOL TARTRATE 25MG TABLET PO SCH (11:15)
[2024-10-23] MEDS: AMLODIPINE 5MG TABLET PO SCH (11:30)
[2024-10-23] MEDS: CLOPIDOGREL 75MG TABLET PO SCH (11:30)
[2024-10-23] MEDS: FAMOTIDINE 20MG TABLET PO SCH (11:45)
[2024-10-23 12:03] VITALS: BP 157/87; PULSE 82; RESP 18; TEMP 36.89184; O2SAT 100
[2024-10-23] MEDS ORDERED: GABAPENTIN 400MG CAPSULE PO SCH (13:00)
[2024-10-23] MEDS ORDERED: FAMOTIDINE(NEO) 1MG/ML SUSP PO SCH (21:00)
[2024-10-23] MEDS ORDERED: CYCLOBENZAPRINE 10MG TABLET PO SCH (21:00)
[2024-10-23] MEDS ORDERED: ATORVASTATIN CALCIUM 40MG TABLET PO SCH (21:00)
[2024-10-23] MEDS ORDERED: MEDICATION NOT ON FORMULARY EA (Rosuvastatin Calcium (Crestor) 40 MG) PO SCH (21:00)
[2024-10-24] MEDS ORDERED: ISOSORBIDE MONONITRATE 20MG TABLET PO SCH (09:00)
[2024-10-24] MEDS ORDERED: ASPIRIN 81MG EC TABLET PO SCH (09:00)
[2024-10-24] MEDS ORDERED: MEDICATION NOT ON FORMULARY EA (Gabapentin 1 TAB) PO SCH (09:00)
[2024-10-24] MEDS ORDERED: GABAPENTIN 400MG CAPSULE PO SCH (09:00)
== END 2024-10-23 12:17 | disposition left against medical advice (07) ==
LOC: ER 05:50 → EDBEDREQ 07:58 → EDBEDREQTM 07:58 → ER 12:17
DX: R07.89 Other chest pain (principal); J44.9 Chronic obstructive pulmonary disease, unspecified; I10 Essential (primary) hypertension; E11.9 Type 2 diabetes mellitus without complications; I25.2 Old myocardial infarction; E78.5 Hyperlipidemia, unspecified; F41.9 Anxiety disorder, unspecified; K21.9 Gastro-esophageal reflux disease without esophagitis; Z79.899 Other long term (current) drug therapy; Z95.5 Presence of coronary angioplasty implant and graft
CPT/HCPCS: 36415; 71045; 80048; 83036; 84484; 84703; 85025; 93005; 99285

== ENCOUNTER 2024-11-23 16:23 | Emergency (ER) | payer MEDICARE, MEDICAID ==
[~2024-11-23] VITALS: Ht 175.3 cm; Wt 98.0 kg
[~2024-11-23 16:23] MED LIST changes: +CYCL10TA21 PO; +GABA800T97 PO; -ISMO20 PO; +ISOS-51 PO; +METO25TA6 PO
[2024-11-23 16:32] VITALS: O2SAT 99
[2024-11-23] MEDS ORDERED: METH-653 MT (22:48)
[2024-11-23] MEDS ORDERED: LIDO700A30 TP (22:48)
[2024-11-23] MEDS: METHOCARBAMOL 500MG TABLET PO ONE (23:00)
[2024-11-23] MEDS: KETOROLAC 30MG/ML VIAL IM ONE (23:00)
[2024-11-23 23:28] VITALS: BP 120/78; PULSE 89; RESP 19; TEMP 36.83628; O2SAT 99
== END 2024-11-23 23:30 | disposition home or self-care (01) ==
LOC: ER 16:23
DX: S29.012A Strain of muscle and tendon of back wall of thorax, initial encounter (principal); M54.9 Dorsalgia, unspecified; I10 Essential (primary) hypertension; I25.2 Old myocardial infarction; J44.9 Chronic obstructive pulmonary disease, unspecified; I49.9 Cardiac arrhythmia, unspecified; Z79.899 Other long term (current) drug therapy; Z79.82 Long term (current) use of aspirin; Z79.02 Long term (current) use of antithrombotics/antiplatelets
CPT/HCPCS: 99283; 71045; 96372; J1885

== ENCOUNTER 2025-03-22 10:26 | Inpatient (IN) | payer MEDICARE, MEDICAID ==
[~2025-03-22] VITALS: Ht 175.3 cm; Wt 100.2 kg
[~2025-03-22 10:26] MED LIST changes: +ASPI-1406 PO; -CLOP75TA33 PO; +COR6 PO; -FAMO-135 MT; +FOLI-43 PO; +ISOS60TA76 PO; +LIDO700A30 TP; +LIP40 PO; -METO25TA6 PO; +NITR0.4T49 SL; +PROT40 MT; -ROSU40TA PO; +THIA100T72 PO; +TICA90TA PO
[2025-03-22 10:29] VITALS: O2SAT 96
[2025-03-22 11:01] LABS: BASOPHILS % 1.1 % (0.0-2.0); EOSINOPHILS % 9.7 % (0.0-5.0); HEMATOCRIT. 40.8 % (36.0-48.0); HEMOGLOBIN. 13.8 g/dL (12.0-16.0); LYMPHOCYTES % 26.9 % (20.0-50.0); MEAN CORPUSCULAR HEMOGLOBIN 31.7 pg (28.0-32.0); MEAN CORPUSCULAR HGB CONC 33.9 g/dL (31.0-37.0); MEAN CORPUSCULAR VOLUME 93.6 fL (81.0-99.0); MEAN PLATELET VOLUME 7.6 fl (7.4-10.4); MONOCYTES % 7.7 % (2.0-8.0); NEUTROPHILS % 54.6 % (40.0-76.0); PLATELET 260 x1000/uL (130-400); RED BLOOD CELL COUNT 4.36 mill/uL (4.2-5.4); RED CELL DISTRIBUTION WIDTH 14.7 % (11.6-14.6); WHITE BLOOD COUNT 7.1 x1000/uL (4.5-11.0)
[2025-03-22 11:14] LABS: HCG SCREEN NEGATIVE
[2025-03-22 11:19] LABS: CHLORIDE 109 mEq/L (98-107); POTASSIUM 4.8 mEq/L (3.5-5.1); SODIUM 141 mEq/L (136-145)
[2025-03-22 11:20] LABS: CALCIUM 10.1 mg/dL (8.7-10.4); CARBON DIOXIDE 25 mEq/L (21-32)
[2025-03-22 11:25] LABS: CREATININE 0.7 mg/dL (0.6-1.0); GLUCOSE 101 mg/dL (70-105); UREA NITROGEN BLOOD 12 mg/dL (9-23)
[2025-03-22 11:39] LABS: TROPONIN I HIGH SENSITIVITY < 4 ng/L (3.0-34)
[2025-03-22] MEDS ORDERED: HYDROCODONE/ACETAMINOPHEN 5/325MG TABLET PO PRN (12:00)
[2025-03-22] MEDS ORDERED: NITROGLYCERIN 0.4MG TABLET SL SL PRN (12:00)
[2025-03-22] MEDS ORDERED: IPRATROPIUM/ALBUTEROL 0.5-3(2.5)MG/3ML NEB HHN PRN (12:00)
[2025-03-22] MEDS ORDERED: CLONIDINE 0.1MG TABLET PO PRN (12:00)
[2025-03-22] MEDS ORDERED: GUAIFENESIN 200MG/10ML SUGAR FREE UDC PO PRN (12:00)
[2025-03-22] MEDS ORDERED: ACETAMINOPHEN 325MG TABLET PO PRN ×2 (12:00)
[2025-03-22] MEDS ORDERED: DOCUSATE SODIUM 100MG CAPSULE PO PRN (12:00)
[2025-03-22] MEDS ORDERED: NA PHOS,M-B/NA PHOS,DI-BA ENEMA 118ML PR PRN (12:00)
[2025-03-22] MEDS ORDERED: ONDANSETRON HCL 4MG/2ML INJ IV PRN (12:00)
[2025-03-22] MEDS ORDERED: MAGNESIUM/ALUMINUM HYDROXIDE/SIMETHICONE 30ML UDC PO PRN (12:00)
[2025-03-22 12:26] VITALS: BP 138/84; PULSE 64; RESP 18; TEMP 35.7; O2SAT 99
[2025-03-22] MEDS ORDERED: NALOXONE HCL 0.4MG/ML VIAL IV PRN (12:45)
[2025-03-22 12:46] LABS: PHOSPHORUS 3.1 mg/dL (2.5-4.9)
[2025-03-22 12:48] LABS: T4 FREE 1.13 ng/dL (0.89-1.76); THYROID STIMULATING HORMONE 0.87 uIU/mL (0.55-4.78)
[2025-03-22] MEDS ORDERED: GABAPENTIN 300MG CAPSULE PO SCH (13:00)
[2025-03-22 13:17] VITALS: BP 138/84; PULSE 64; RESP 18; TEMP 35.8
[2025-03-22 14:42] LABS: HEPATITIS B SURFACE ANTIGEN NEGATIVE (Negative)
[2025-03-22 15:03] LABS: HEPATITIS C AB NON REACTIVE (Neg) (Negative)
[2025-03-22] MEDS ORDERED: CARVEDILOL 12.5MG TABLET PO SCH (21:00)
[2025-03-22] MEDS ORDERED: CYCLOBENZAPRINE 10MG TABLET PO SCH (21:00)
[2025-03-22] MEDS ORDERED: ATORVASTATIN CALCIUM 40MG TABLET PO SCH (21:00)
[2025-03-22] MEDS ORDERED: RANOLAZINE 500 MG TAB.SR.12H PO SCH (21:00)
[2025-03-22] MEDS ORDERED: TICAGRELOR 90 MG TABLET PO SCH (21:00)
[2025-03-23] MEDS ORDERED: ASPIRIN 81MG EC TABLET PO SCH (09:00)
[2025-03-23] MEDS ORDERED: AMLODIPINE 10MG TABLET PO SCH (09:00)
[2025-03-23] MEDS ORDERED: ISOSORBIDE MONONITRATE 60MG TABLET SR 24HR PO SCH (09:00)
[2025-03-23] MEDS ORDERED: EZETIMIBE 10MG TABLET PO SCH (09:00)
== END 2025-03-22 14:43 | disposition left against medical advice (07) | DRG 206 ==
LOC: ER 10:26 → 7WST 11:36 → EDBEDREQ 11:38
PROVIDERS: ADMIT Internal Medicine; ATTEND Internal Medicine
DX: M94.0 Chondrocostal junction syndrome [Tietze] (principal); I10 Essential (primary) hypertension; E78.5 Hyperlipidemia, unspecified; I25.10 Atherosclerotic heart disease of native coronary artery without angina pectoris; J44.89 Other specified chronic obstructive pulmonary disease; Z53.29 Procedure and treatment not carried out because of patient's decision for other reasons; F41.9 Anxiety disorder, unspecified; K21.9 Gastro-esophageal reflux disease without esophagitis; F17.210 Nicotine dependence, cigarettes, uncomplicated; I25.2 Old myocardial infarction; Z86.59 Personal history of other mental and behavioral disorders; Z95.5 Presence of coronary angioplasty implant and graft
CPT/HCPCS: 36415; 71045; 80048; 82728; 83735; 83880; 84100; 84439; 84443; 84484; 84703; 85025; 86705; 87340; 93005; 99291